=== PATIENT | female | born 1985 | race Caucasian/White ===

== ENCOUNTER 2019-05-19 04:30 | Inpatient (IN) | payer BC ==
[~2019-05-19] VITALS: Ht 157.5 cm; Wt 72.6 kg
[2019-05-19] MEDS ORDERED: LR 1,000 ML IV SCH ×3 (07:54→15:30)
[2019-05-19] MEDS ORDERED: LR 1,000 ML IV ONE (07:54)
[2019-05-19] MEDS ORDERED: NALBUPHINE HCL 10 MG/ML AMP IVP PRN (08:00)
[2019-05-19] MEDS ORDERED: TERBUTALINE SULFATE 1 MG/ML VIAL SUBCUT PRN (08:00)
[2019-05-19] MEDS ORDERED: AMPICILLIN SODIUM 2 GM in NS 100 ML IV ONE (08:00)
[2019-05-19 08:33] LABS: BASOPHILS # (AUTO) 0.1 K/uL (0.0-0.2); BASOPHILS % (AUTO) 0.4 % (0.0-2.0); EOSINOPHILS # (AUTO) 0.1 K/uL (0.0-0.4); EOSINOPHILS % (AUTO) 0.7 % (0.0-4.0); HEMATOCRIT 38.5 % (36-48); HEMOGLOBIN 13.1 g/dL (12.0-16.0); LYMPHOCYTES # (AUTO) 2.1 K/uL (1.0-5.5); LYMPHOCYTES % (AUTO) 15.3 % (20.5-51.5); MEAN CORPUSCULAR HEMOGLOBIN 32 pg (27-31); MEAN CORPUSCULAR HGB CONC 34 % (32-36); MEAN CORPUSCULAR VOLUME 96 fL (79.0-98.0); MONOCYTES # (AUTO) 0.8 K/uL (0.0-1.0); MONOCYTES % (AUTO) 5.5 % (1.7-9.3); NEUTROPHILS # (AUTO) 10.8 K/uL (1.8-7.7); NEUTROPHILS % (AUTO) 78.1 % (40.0-70.0); PLATELET COUNT (AUTO) 151 K/uL (130-430); RED BLOOD CELL COUNT(AUTO) 4.03 MIL/uL (4.2-6.2); RED CELL DISTRIBUTION WIDTH 13.3 % (9.0-15.0); WHITE BLOOD COUNT (AUTO) 13.8 K/uL (4.8-10.8)
[2019-05-19] MEDS ORDERED: AMPICILLIN SODIUM 2 GM VIAL ONE (08:51)
[2019-05-19] MEDS ORDERED: fentaNYL CITRATE/PF 100 MCG/2 ML AMP ONE (09:46)
[2019-05-19] MEDS ORDERED: ROPIVACAINE HCL/PF 0.2% 200 ML ONE (09:46)
[2019-05-19] MEDS ORDERED: AMPICILLIN SODIUM 1 GM in NS 50 ML IV SCH (11:00)
[2019-05-19] MEDS ORDERED: LR 500 ML IV ONE (11:41)
[2019-05-19] MEDS ORDERED: FENT2mCg/mL-ROPIVA0.2%/NS EPID 200 ML EP SCH (11:45)
[2019-05-19] MEDS ORDERED: fentaNYL CITRATE/PF 100 MCG/2 ML AMP EP ONE (11:45)
[2019-05-19] MEDS ORDERED: ePHEDrine sulfate 50 MG/ML VIAL IVP PRN (11:45)
[2019-05-19] MEDS ORDERED: OXYTOCIN/0.9 % SODIUM CHLORIDE 1,000 ML IV ONE ×4 (13:19→23:04)
[2019-05-19] MEDS ORDERED: TERBUTALINE SULFATE 1 MG/ML VIAL ONE (14:32)
[2019-05-19] MEDS ORDERED: CEFAZOLIN 2 GM IVPB PREMIX 50 ML IV ONE ×3 (14:34→15:00)
[2019-05-19] MEDS ORDERED: MORPHINE SULFATE 10MG/10ML PF AMP EP ONE (14:34)
[2019-05-19] MEDS ORDERED: ePHEDrine sulfate 50 MG/ML VIAL IVP ONE (14:34)
[2019-05-19] MEDS ORDERED: NS IRRIG SOLN 1000 ML IR ONE (14:34)
[2019-05-19] MEDS ORDERED: LIDOCAINE 2%, 20 ML MDV INJ ONE (14:34)
[2019-05-19] MEDS ORDERED: LR 1,000 ML IV.SOLN IV ONE (14:34)
[2019-05-19] MEDS ORDERED: TERBUTALINE SULFATE 1 MG/ML VIAL SUBCUT ONE (15:00)
[2019-05-19] MEDS ORDERED: DIPH-TET-PERTUS Vaccine 0.5 ML VIAL (ADACEL) I.M. PRN (15:15)
[2019-05-19] MEDS ORDERED: RHO(D) IMMUNE GLOBULIN/MALTOSE 1500 UNITS/1.3 ML (WINHRO) IM PRN (15:15)
[2019-05-19] MEDS ORDERED: ANUSOL 1 EA SUPP.RECT (PREPARATION H) RC PRN (15:15)
[2019-05-19] MEDS ORDERED: BISACODYL 10 MG/SUPPOSITORY RC PRN (15:15)
[2019-05-19] MEDS ORDERED: OXYCODONE/ACETAMINOPHEN 5-325 TABLET PO PRN (15:15)
[2019-05-19] MEDS ORDERED: LANOLIN 7 GM OINT. TP PRN (15:15)
[2019-05-19] MEDS ORDERED: MEASLES,MUMPS&RUBELLA VACC/PF 12500 UNIT/0.5 ML VIAL SUBQ PRN (15:15)
[2019-05-19] MEDS ORDERED: SENNOSIDES/DOCUSATE SODIUM 1 TAB TABLET(SENOKOT-S) PO PRN (15:15)
[2019-05-19] MEDS ORDERED: HYDROcodone/ACETAMIN 5-325 MG TAB (NORCO/ VICODIN) PO PRN (15:15)
[2019-05-19 15:25] VITALS: BP_SYST 124
[2019-05-19] MEDS ORDERED: MORPHINE SULFATE 10MG/10ML PF AMP EP SCH (15:30)
[2019-05-19] MEDS ORDERED: DIPHENHYDRAMINE INJ 50 MG/ML VIAL IM PRN (15:30)
[2019-05-19] MEDS ORDERED: NALOXONE HCL 0.4 MG/ML AMP (NARCAN) IVP PRN (15:30)
[2019-05-19] MEDS ORDERED: ONDANSETRON HCL 4 MG/2 ML VIAL IVP PRN ×2 (15:30)
[2019-05-19] MEDS ORDERED: KETOROLAC TROMETHAMINE 60 MG/2 ML VIAL IM PRN (15:30)
[2019-05-19] MEDS ORDERED: MEPERIDINE HCL/PF 50 MG/ML AMP IM ONE (16:15)
[2019-05-19] MEDS ORDERED: MEPERIDINE HCL/PF 50 MG/ML AMP ONE (16:21)
[2019-05-19] MEDS ORDERED: CEFAZOLIN 1 GM IVPB PREMIX 50 ML IV SCH (18:00)
[2019-05-19] MEDS: KETOROLAC TROMETHAMINE 30 MG VIAL IVP SCH (20:10)
[2019-05-19] MEDS ORDERED: TEMAZEPAM 15 MG CAPSULE PO PRN (21:00)
[2019-05-20 08:21] LABS: BASOPHILS % (AUTO) 0.1 % (0.0-2.0); EOSINOPHILS # (AUTO) 0.1 K/uL (0.0-0.4); EOSINOPHILS % (AUTO) 0.7 % (0.0-4.0); HEMATOCRIT 28.5 % (36-48); HEMOGLOBIN 9.6 g/dL (12.0-16.0); MEAN CORPUSCULAR HEMOGLOBIN 32 pg (27-31); MEAN CORPUSCULAR HGB CONC 34 % (32-36); MEAN CORPUSCULAR VOLUME 96 fL (79.0-98.0); MONOCYTES # (AUTO) 0.7 K/uL (0.0-1.0); MONOCYTES % (AUTO) 6.2 % (1.7-9.3); NEUTROPHILS # (AUTO) 9.7 K/uL (1.8-7.7); PLATELET COUNT (AUTO) 105 K/uL (130-430); RED BLOOD CELL COUNT(AUTO) 2.98 MIL/uL (4.2-6.2); RED CELL DISTRIBUTION WIDTH 13.4 % (9.0-15.0); WHITE BLOOD COUNT (AUTO) 11.6 K/uL (4.8-10.8)
[2019-05-20] MEDS: KETOROLAC TROMETHAMINE 30 MG VIAL IVP SCH ×2 (08:38→14:26)
[2019-05-20] MEDS: DOCUSATE SODIUM 100 MG CAPSULE PO PRN ×2 (14:23→21:26)
[2019-05-20] MEDS: SIMETHICONE 80 MG TAB.CHEW PO PRN ×2 (14:24→21:26)
[2019-05-20] MEDS: IBUPROFEN 600 MG TABLET PO SCH (18:27)
[2019-05-21] MEDS: IBUPROFEN 600 MG TABLET PO SCH ×4 (00:13→17:26)
[2019-05-21] MEDS: OXYCODONE/ACETAMINOPHEN 5-325 TABLET PO PRN ×2 (04:15→11:54)
[2019-05-21] MEDS: DOCUSATE SODIUM 100 MG CAPSULE PO PRN (08:43)
[2019-05-21] MEDS: SIMETHICONE 80 MG TAB.CHEW PO PRN ×2 (08:43→15:44)
== END 2019-05-21 20:10 | disposition home or self-care (01) | DRG 787 ==
LOC: SPU 04:30 → OBSVTOIN 06:15 → SPU 17:22
PROVIDERS: ADMIT Specialist; ATTEND Specialist
PROC: 10D00Z1 Extraction of Products of Conception, Low, Open Approach (ICD-10-PCS; principal; 2019-05-21)
DX: O48.0 Post-term pregnancy (principal); O41.03X0 Oligohydramnios, third trimester, not applicable or unspecified; O76 Abnormality in fetal heart rate and rhythm complicating labor and delivery; O62.9 Abnormality of forces of labor, unspecified; O99.824 Streptococcus B carrier state complicating childbirth; O69.81X0 Labor and delivery complicated by cord around neck, without compression, not applicable or unspecified; Z37.0 Single live birth; Z3A.40 40 weeks gestation of pregnancy
CPT/HCPCS: 36415; 85025; 86592; 86886; 86900; 86901; 88307; G0378; J0290; J0690; J1885; J2001; J2175; J2274; J2590; J3010; J3105; J7120

== ENCOUNTER 2020-12-18 05:05 | Inpatient (IN) | payer BC, SELFPAY ==
[2020-12-16 16:05] LABS: BASOPHILS # (AUTO) 0.1 K/uL (0.0-0.2); BASOPHILS % (AUTO) 0.7 % (0.0-2.0); EOSINOPHILS # (AUTO) 0.1 K/uL (0.0-0.4); EOSINOPHILS % (AUTO) 1.1 % (0.0-4.0); HEMATOCRIT 33.9 % (36-48); HEMOGLOBIN 11.6 g/dL (12.0-16.0); LYMPHOCYTES % (AUTO) 23.8 % (20.5-51.5); MEAN CORPUSCULAR HEMOGLOBIN 32 pg (27-31); MEAN CORPUSCULAR HGB CONC 34 % (32-36); MEAN CORPUSCULAR VOLUME 93 fL (79.0-98.0); MONOCYTES # (AUTO) 0.6 K/uL (0.0-1.0); MONOCYTES % (AUTO) 6.6 % (1.7-9.3); NEUTROPHILS # (AUTO) 5.7 K/uL (1.8-7.7); NEUTROPHILS % (AUTO) 67.8 % (40.0-70.0); PLATELET COUNT (AUTO) 139 K/uL (130-430); RED BLOOD CELL COUNT(AUTO) 3.66 MIL/uL (4.2-6.2); RED CELL DISTRIBUTION WIDTH 13.9 % (9.0-15.0); WHITE BLOOD COUNT (AUTO) 8.4 K/uL (4.8-10.8)
[2020-12-16 16:14] LABS: BILIRUBIN,URINE NEGATIVE (NEGATIVE); BLOOD, URINE NEGATIVE (NEGATIVE); CLARITY/URINE CLEAR (CLEAR); COLOR,URINE YELLOW (YELLOW); GLUCOSE,URINE NEGATIVE (NEGATIVE); KETONES,URINE NEGATIVE (NEGATIVE); LEUKOCYTE ESTERASE ,URINE 2+ (NEGATIVE); NITRITE, URINE NEGATIVE (NEGATIVE); PH,URINE 6.5 (5.0-8.0); PROTEIN URINE NEGATIVE (NEGATIVE); UROBILINOGEN,URINE 0.2 (0.2-1.0)
[2020-12-16 16:21] LABS: BACTERIA,URINE None Seen /HPF (None Seen); CALCIUM OXALATE CRYSTALS,UR None Seen /HPF (None Seen); CALCIUM PHOSPHATE CRYSTALS,UR None Seen /HPF (None Seen); RBC,URINE NONE SEEN /HPF (0-3); TRICHOMONAS,URINE None Seen /HPF (None Seen); URIC ACID CRYSTALS,URINE None Seen /HPF (None Seen); YEAST,URINE None Seen /HPF (None Seen)
[~2020-12-18] VITALS: Ht 157.5 cm; Wt 74.8 kg
[2020-12-18] MEDS ORDERED: LR 1,000 ML IV SCH ×2 (05:15→09:30)
[2020-12-18] MEDS ORDERED: CEFAZOLIN 2 GM IVPB PREMIX 50 ML IV ONE (06:00)
[2020-12-18] MEDS ORDERED: AMPICILLIN SODIUM 2 GM VIAL ONE (06:44)
[2020-12-18] MEDS ORDERED: AMPICILLIN SODIUM 2 GM in NS 100 ML IV ONE (06:45)
[2020-12-18] MEDS ORDERED: ONDANSETRON HCL 4 MG/2 ML VIAL IVP ONE (08:03)
[2020-12-18] MEDS ORDERED: NS 1000 ML IV.SOLN IV ONE (08:03)
[2020-12-18] MEDS ORDERED: LR 1,000 ML IV.SOLN IV ONE (08:03)
[2020-12-18] MEDS ORDERED: BUPIVACAINE /PF 0.75% 10 ML VIAL INJ ONE (08:03)
[2020-12-18] MEDS ORDERED: OXYTOCIN 10 UNIT/ML VIAL IV ONE (08:03)
[2020-12-18] MEDS ORDERED: MORPHINE SULFATE 10MG/10ML PF AMP EP ONE (08:03)
[2020-12-18] MEDS ORDERED: NALOXONE HCL 0.4 MG/ML AMP (NARCAN) IVP PRN ×2 (08:30→09:30)
[2020-12-18] MEDS ORDERED: DIPHENHYDRAMINE INJ 50 MG/ML VIAL IM PRN (08:30)
[2020-12-18] MEDS ORDERED: ONDANSETRON HCL 4 MG/2 ML VIAL IVP PRN (08:30)
[2020-12-18] MEDS ORDERED: MORPHINE SULFATE 10MG/10ML PF AMP SP SCH (08:30)
[2020-12-18 09:00] VITALS: BP_SYST 122
[2020-12-18] MEDS ORDERED: SENNOSIDES/DOCUSATE SODIUM 1 TAB TABLET(SENOKOT-S) PO PRN (09:30)
[2020-12-18] MEDS ORDERED: LANOLIN 7 GM OINT. TP PRN (09:30)
[2020-12-18] MEDS ORDERED: TEMAZEPAM 15 MG CAPSULE PO PRN (09:30)
[2020-12-18] MEDS ORDERED: ANUSOL 1 EA SUPP.RECT (PREPARATION H) RC PRN (09:30)
[2020-12-18] MEDS ORDERED: RHO(D) IMMUNE GLOBULIN/MALTOSE 1500 UNITS/1.3 ML (WINHRO) IM PRN (09:30)
[2020-12-18] MEDS ORDERED: OXYTOCIN/0.9 % SODIUM CHLORIDE 1,000 ML IV SCH (09:30)
[2020-12-18] MEDS ORDERED: BISACODYL 10 MG/SUPPOSITORY RC PRN (09:30)
[2020-12-18] MEDS ORDERED: HYDROcodone/ACETAMIN 5-325 MG TAB (NORCO/ VICODIN) PO PRN (09:30)
[2020-12-18] MEDS ORDERED: DIPH-TET-PERTUS Vaccine 0.5 ML VIAL (ADACEL) I.M. PRN (09:30)
[2020-12-18] MEDS ORDERED: MEASLES,MUMPS&RUBELLA VACC/PF 12500 UNIT/0.5 ML VIAL SUBQ PRN (09:30)
[2020-12-18] MEDS: KETOROLAC TROMETHAMINE 60 MG/2 ML VIAL IM PRN ×2 (11:36→23:56)
[2020-12-18] MEDS: KETOROLAC TROMETHAMINE 30 MG VIAL IVP SCH (17:32)
[2020-12-18] MEDS: CEFAZOLIN 1 GM IVPB PREMIX 50 ML IV SCH ×2 (17:33→23:55)
[2020-12-19] MEDS: KETOROLAC TROMETHAMINE 30 MG VIAL IVP SCH ×2 (05:50→12:01)
[2020-12-19] MEDS: CEFAZOLIN 1 GM IVPB PREMIX 50 ML IV SCH (05:50)
[2020-12-19] MEDS: KETOROLAC TROMETHAMINE 60 MG/2 ML VIAL IM PRN (05:51)
[2020-12-19 07:12] LABS: BASOPHILS % (AUTO) 0.3 % (0.0-2.0); EOSINOPHILS # (AUTO) 0.2 K/uL (0.0-0.4); EOSINOPHILS % (AUTO) 2.3 % (0.0-4.0); HEMATOCRIT 25.6 % (36-48); HEMOGLOBIN 8.6 g/dL (12.0-16.0); LYMPHOCYTES # (AUTO) 1.4 K/uL (1.0-5.5); LYMPHOCYTES % (AUTO) 16.3 % (20.5-51.5); MEAN CORPUSCULAR HEMOGLOBIN 31 pg (27-31); MEAN CORPUSCULAR HGB CONC 34 % (32-36); MEAN CORPUSCULAR VOLUME 92 fL (79.0-98.0); MONOCYTES # (AUTO) 0.5 K/uL (0.0-1.0); MONOCYTES % (AUTO) 5.5 % (1.7-9.3); NEUTROPHILS # (AUTO) 6.4 K/uL (1.8-7.7); NEUTROPHILS % (AUTO) 75.6 % (40.0-70.0); PLATELET COUNT (AUTO) 104 K/uL (130-430); RED BLOOD CELL COUNT(AUTO) 2.77 MIL/uL (4.2-6.2); RED CELL DISTRIBUTION WIDTH 13.6 % (9.0-15.0); WHITE BLOOD COUNT (AUTO) 8.5 K/uL (4.8-10.8)
[2020-12-19] MEDS: OXYCODONE/ACETAMINOPHEN 5-325 TABLET PO PRN ×2 (11:09→16:35)
[2020-12-19] MEDS: DOCUSATE SODIUM 100 MG CAPSULE PO PRN ×2 (16:34→21:09)
[2020-12-19] MEDS: SIMETHICONE 80 MG TAB.CHEW PO PRN ×2 (16:38→21:09)
[2020-12-19] MEDS: IBUPROFEN 600 MG TABLET PO SCH ×2 (18:01)
[2020-12-19] MEDS: OXYCODONE/ACETAMINOPHEN *10*mg/325 mg TABLET PO PRN (21:10)
[2020-12-20] MEDS: IBUPROFEN 600 MG TABLET PO SCH (06:00)
[2020-12-20] MEDS: OXYCODONE/ACETAMINOPHEN *10*mg/325 mg TABLET PO PRN ×2 (06:50→10:40)
[2020-12-20] MEDS: DOCUSATE SODIUM 100 MG CAPSULE PO PRN (10:39)
[2020-12-20] MEDS: SIMETHICONE 80 MG TAB.CHEW PO PRN (10:40)
== END 2020-12-20 11:30 | disposition home or self-care (01) | DRG 788 ==
LOC: SPU 05:05
PROVIDERS: ADMIT Specialist; ATTEND Specialist
PROC: 10D00Z1 Extraction of Products of Conception, Low, Open Approach (ICD-10-PCS; principal; 2020-12-18 07:30)
DX: O34.211 Maternal care for low transverse scar from previous cesarean delivery (principal); Z37.0 Single live birth; Z20.822 Contact with and (suspected) exposure to COVID-19; Z3A.39 39 weeks gestation of pregnancy
CPT/HCPCS: 36415; 81000; 85025; 86886; 86900; 86901; J0290; J0690; J1885; J2274; J2405; J2590; J3490; J7030; J7120; U0003